=== PATIENT | female | born 2000 | race Two or more races ===

== ENCOUNTER 2021-07-02 10:23 | Outpatient (CLI) | payer OTHER | END 2021-07-02 11:23 | disposition home or self-care (01) | LOC: PRENATAL 10:23 | PROVIDERS: ATTEND Obstetrics & Gynecology Maternal & Fetal Medicine | DX: Z36.89 Encounter for other specified antenatal screening (principal); O36.80X1 Pregnancy with inconclusive fetal viability, fetus 1; Z3A.14 14 weeks gestation of pregnancy ==

== ENCOUNTER 2021-08-14 13:51 | Outpatient (CLI) | payer OTHER | END 2021-08-14 15:00 | disposition home or self-care (01) | LOC: PRENATAL 13:51 | PROVIDERS: ATTEND Obstetrics & Gynecology Maternal & Fetal Medicine | DX: O35.0XX1 Maternal care for (suspected) central nervous system malformation in fetus, fetus 1 (principal); O35.3XX1 Maternal care for (suspected) damage to fetus from viral disease in mother, fetus 1; O98.512 Other viral diseases complicating pregnancy, second trimester; O99.212 Obesity complicating pregnancy, second trimester; Z36.89 Encounter for other specified antenatal screening; Z3A.21 21 weeks gestation of pregnancy ==

== ENCOUNTER 2021-11-06 14:13 | Outpatient (CLI) | payer OTHER | END 2021-11-06 14:45 | disposition home or self-care (01) | LOC: PRENATAL 14:13 | PROVIDERS: ATTEND Obstetrics & Gynecology Maternal & Fetal Medicine | DX: O35.0XX0 Maternal care for (suspected) central nervous system malformation in fetus, not applicable or unspecified (principal); O35.3XX0 Maternal care for (suspected) damage to fetus from viral disease in mother, not applicable or unspecified; O99.210 Obesity complicating pregnancy, unspecified trimester; Z3A.32 32 weeks gestation of pregnancy ==

== ENCOUNTER 2021-12-11 13:00 | Inpatient (IN) | payer OTHER ==
[~2021-12-11] VITALS: Ht 157.5 cm; Wt 3.6 kg
[2022-01-03] MEDS ORDERED: PRENATAL CAPLE1 EAC1 PO (12:08)
== END 2022-01-06 11:24 | disposition home or self-care (01) | DRG 788 ==
LOC: OB/GYN 12-29 13:00 → LDR 01-03 11:29 → SURG-SUITE 01-03 11:29
PROVIDERS: ADMIT Obstetrics & Gynecology; ATTEND Obstetrics & Gynecology
PROC: 4A1HXCZ Monitoring of Products of Conception, Cardiac Rate, External Approach (ICD-10-PCS; 2022-01-03)
PROC: 10D00Z1 Extraction of Products of Conception, Low, Open Approach (ICD-10-PCS; principal; 2022-01-03 15:00)
DX: O62.0 Primary inadequate contractions (principal); O36.63X0 Maternal care for excessive fetal growth, third trimester, not applicable or unspecified; Z3A.40 40 weeks gestation of pregnancy; Z37.0 Single live birth; Z20.822 Contact with and (suspected) exposure to COVID-19

== ENCOUNTER 2023-07-05 09:32 | Outpatient (CLI) | payer OTHER ==
[~2023-07-05 09:32] MED LIST: PRENATAL CAPLE1 EAC1 PO
== END 2023-07-05 09:33 | disposition home or self-care (01) ==
LOC: PRENATAL 09:32
PROVIDERS: ATTEND Obstetrics & Gynecology Maternal & Fetal Medicine
DX: O35.3XX0 Maternal care for (suspected) damage to fetus from viral disease in mother, not applicable or unspecified (principal); O44.00 Complete placenta previa NOS or without hemorrhage, unspecified trimester; Z3A.27 27 weeks gestation of pregnancy

== ENCOUNTER → 2023-09-06 14:29 | Outpatient (CLI) | payer OTHER | END | disposition home or self-care (01) | LOC: PRENATAL 14:29 | PROVIDERS: ATTEND Obstetrics & Gynecology Maternal & Fetal Medicine | DX: O26.849 Uterine size-date discrepancy, unspecified trimester (principal); O36.8199 Decreased fetal movements, unspecified trimester, other fetus; Z3A.36 36 weeks gestation of pregnancy ==

== ENCOUNTER 2023-09-22 14:43 | Inpatient (IN) | payer OTHER ==
[2023-09-22 15:34] LABS: HEMATOCRIT 36.7 % (36.0-45.00); MEAN CELL VOLUME 85.1 fL (80.00-100.00); MEAN CORPUSCULAR HGB CONC 32.8 g/dl (32.0-36.0); PLATELET COUNT 164 K/uL (150-450); RED BLOOD COUNT 4.31 M/uL (4.00-6.00)
[2023-09-22 15:34] LABS: URINE APPEARANCE Clear; URINE BILIRRUBIN Negative (NEGATIVE); URINE BLOOD Negative; URINE COLOR Yellow; URINE GLUCOSE Negative (NEGATIVE); URINE LEUKOCYTE Negative; URINE NITRATE Negative; URINE PROTEIN Trace (NEGATIVE); URINE UROBILINOGEN 0.2 E.U./dl
[2023-09-22 15:35] LABS: URINE RBC 3.3 uL (0.0-20.8); URINE WBC 11.5 uL (0.0-23.2)
[2023-09-22 15:43] LABS: RED CELL DISTRIBUTION WIDTH 18.7 % (11.5-14.5)
[2023-09-22 16:01] LABS: INR < 0.93; PARTIAL THROMBOPLASTIN TIME 28.2 SECONDS (22.0-34.0); PROTHROMBIN TIME 9.4 SECONDS (9.0-11.5)
[2023-09-22 16:17] LABS: ALBUMIN 2.5 gm/dL (3.4-5.0); BILIRUBIN TOTAL 0.21 mg/dL (0.3-1.2); CALCIUM 8.3 mg/dL (8.5-10.1); CREATININE SERUM 0.7 mg/dL (0.55-1.02); GFR 101.95; GLOBULINA 3.3 G/DL (2.4-3.5); POTASSIUM 3.75 mEq/L (3.5-5.1); TOTAL PROTEIN 5.8 gm/dL (6.4-8.2)
[2023-09-27] MEDS ORDERED: MAXFE CAPLET1 EAC1 (14:30)
[2023-09-27] MEDS ORDERED: ERYTHROMYCIN BASE 1 GM TUBE OP ONE ×2 (20:18→21:45)
[2023-09-27] MEDS ORDERED: OXYTOCIN 10 UNITS/ML VIAL ONE (20:18)
[2023-09-27] MEDS ORDERED: CEFOXITIN SODIUM 2,000 MG VIAL IV ONE (20:50)
[2023-09-27] MEDS ORDERED: CEFOXITIN SODIUM 2,000 MG VIAL IV SCH (21:45)
[2023-09-27] MEDS ORDERED: OXYTOCIN 10 UNIT/ML (10ML) IV ONE (21:45)
[2023-09-27] MEDS ORDERED: MEPERIDINE HCL/PF 25 MG/ML VIAL IV PRN (22:45)
[2023-09-27] MEDS ORDERED: KETOROLAC TROMETHAMINE 30 MG VIAL IV PRN (22:45)
[2023-09-27] MEDS ORDERED: OXYTOCIN 1,000 ML IV SCH (22:45)
[2023-09-27] MEDS ORDERED: PROMETHAZINE HCL 25 MG/ML AMPUL IV PRN (22:45)
[2023-09-28] MEDS ORDERED: OXYTOCIN 10 UNITS/ML VIAL ONE (00:25)
[2023-09-28 03:52] LABS: HEMATOCRIT 34.7 % (36.0-45.00); HEMOGLOBIN 11.7 g/dL (12.0-15.00); MEAN CELL VOLUME 84.6 fL (80.00-100.00); MEAN CORPUSCULAR HEMOGLOBIN 28.4 pg (27.00-32.0); MEAN CORPUSCULAR HGB CONC 33.7 g/dl (32.0-36.0); PLATELET COUNT 141 K/uL (150-450); RED BLOOD COUNT 4.11 M/uL (4.00-6.00); RED CELL DISTRIBUTION WIDTH 19.1 % (11.5-14.5)
[2023-09-28] MEDS ORDERED: OxyCODONE HCL/APAP UD (PERCOCET) PO PRN (09:00)
[2023-09-28] MEDS ORDERED: SIMETHICONE 125 MG CAPSULE PO SCH (09:00)
[2023-09-28] MEDS ORDERED: DOCUSATE SODIUM 100MG CAP PO SCH (09:00)
[2023-09-28] MEDS ORDERED: IBUprofen 800 MG TABLET PO PRN (09:00)
== END 2023-09-30 14:49 | disposition home or self-care (01) | DRG 785 ==
LOC: OB/GYN 09-26 14:42 → O/R 09-27 12:29 → OB/GYN 09-27 22:28
PROVIDERS: ADMIT Student in an Organized Health Care Education/Training Program; ATTEND Student in an Organized Health Care Education/Training Program
PROC: 0UB70ZZ Excision of Bilateral Fallopian Tubes, Open Approach (ICD-10-PCS; 2023-09-27)
PROC: 4A1HXCZ Monitoring of Products of Conception, Cardiac Rate, External Approach (ICD-10-PCS; 2023-09-27)
PROC: 10D00Z1 Extraction of Products of Conception, Low, Open Approach (ICD-10-PCS; principal; 2023-09-27 09:15)
DX: O34.211 Maternal care for low transverse scar from previous cesarean delivery (principal); O99.824 Streptococcus B carrier state complicating childbirth; O99.214 Obesity complicating childbirth; E66.9 Obesity, unspecified; O42.02 Full-term premature rupture of membranes, onset of labor within 24 hours of rupture; Z3A.39 39 weeks gestation of pregnancy; Z37.0 Single live birth; Z20.822 Contact with and (suspected) exposure to COVID-19; Z30.2 Encounter for sterilization